=== PATIENT | male | born 1990 | race Caucasian/White ===

== ENCOUNTER 2016-10-25 11:59 | Emergency (ER) | payer OTHER ==
[2016-10-25 12:49] LABS: HEMOGLOBIN 13.5 gm/dl (14.0-17.5); RED BLOOD COUNT 4.27 M/UL (4.20-5.50); WHITE BLOOD COUNT 10.1 K/UL (4.5-11.0)
[2016-10-25 13:16] LABS: BUN/CREATININE RATIO 16 (0-10)
== END 2016-10-25 14:24 | disposition home or self-care (01) ==
LOC: ER1 11:59
PROVIDERS: Physician Assistant Medical
DX: L03.116 Cellulitis of left lower limb (principal); R94.5 Abnormal results of liver function studies; F17.210 Nicotine dependence, cigarettes, uncomplicated; Z88.0 Allergy status to penicillin
CPT/HCPCS: 36415; 80053; 85025; 87040; 96365; 99283; J0875; J7070